=== PATIENT | female | born 1960 | race Caucasian/White ===

== ENCOUNTER 2021-12-18 11:32 | Outpatient (CLI) | payer MEDICARE ==
[~2021-12-18 11:32] MED LIST: CIPR750T14 PO; IBUP-1984 PO; LOSA25TA96 PO; MONT10TA21 PO; REM15T PO; TRAM50TA2 PO
[2021-12-18 14:45] LABS: BASOPHILS # (AUTO) 0.2 X10'3 (0-0.2); EOSINOPHILS # (AUTO) 0.8 X10'3 (0-0.9); HEMOGLOBIN 8.9 g/dl (12.0-16.0); MEAN PLATELET VOLUME 8.7 FL (7.4-10.4); MONOCYTES # (AUTO) 0.8 X10'3 (0-0.9); NEUTROPHILS # (AUTO) 4.8 X10'3 (1.8-7.7); WHITE BLOOD COUNT 7.8 X10'3 (4.5-11.0)
[2021-12-18 14:47] LABS: BASOPHILS % (AUTO) 2.8 % (0-1); EOSINOPHILS % (AUTO) 10.6 % (0-6); HEMATOCRIT 28.2 % (35.0-45.0); LYMPHOCYTES # (AUTO) 1.3 X10'3 (1.1-4.8); MEAN CORPUSCULAR HEMOGLOBIN 27.1 PG (27.0-31.0); MEAN CORPUSCULAR HGB CONC 31.6 g/dL (33.0-36.5); MEAN CORPUSCULAR VOLUME 85.6 FL (78-98); MONOCYTES % (AUTO) 9.8 % (2-12); NEUTROPHILS % (AUTO) 60.8 % (42-75); PLATELET COUNT 364 X10'3 (140-440); RED CELL DISTRIBUTION WIDTH 16.4 % (11.5-14.5)
[2021-12-18 14:56] LABS: ALANINE AMINOTRANSFERASE 52 U/L (12-78); ALBUMIN 2.7 G/DL (3.4-5.0); ALBUMIN/GLOBULIN RATIO 0.6 (1.1-1.5); ALKALINE PHOSPHATASE 115 IU/L (46-116); ANION GAP 13 (8-16); ASPARTATE AMINO TRANSFERASE 47 U/L (10-37); BILIRUBIN,TOTAL 0.2 MG/DL (0.1-1.0); BLOOD UREA NITROGEN 6 MG/DL (7-18); BUN/CREATININE RATIO 6.1 (6.6-38.0); CALCIUM 8.5 MG/DL (8.5-10.1); CHLORIDE 108 MMOL/L (99-107); CREATININE 0.99 MG/DL (0.40-0.90); GLUCOSE 118 MG/DL (70-104); POTASSIUM 3.5 MMOL/L (3.5-5.1); SODIUM 143 MMOL/L (135-145); TOTAL CARBON DIOXIDE 22.1 MMOL/L (24-32); TOTAL PROTEIN 7.2 G/DL (6.4-8.2); eGFR 57 ML/MIN
== END 2021-12-18 23:59 | disposition home or self-care (01) ==
LOC: LAB SPEC 11:32
DX: E84.9 Cystic fibrosis, unspecified (principal)
CPT/HCPCS: 36415; 80053; 85025

== ENCOUNTER 2022-11-13 10:16 | Emergency (ER) | payer MEDICARE ==
[~2022-11-13] VITALS: Ht 162.6 cm; Wt 52.3 kg
[~2022-11-13 10:16] MED LIST changes: +MONT-48 PO; -MONT10TA21 PO
[2022-11-13 10:59] LABS: BASOPHILS # (AUTO) 0.1 X10'3 (0-0.2); BASOPHILS % (AUTO) 1.2 % (0-1); EOSINOPHILS # (AUTO) 0.2 X10'3 (0-0.9); EOSINOPHILS % (AUTO) 1.5 % (0-6); HEMATOCRIT 33.8 % (35.0-45.0); HEMOGLOBIN 10.7 g/dl (12.0-16.0); LYMPHOCYTES # (AUTO) 1.4 X10'3 (1.1-4.8); LYMPHOCYTES % (AUTO) 12.4 % (21-51); MEAN CORPUSCULAR HEMOGLOBIN 25.5 PG (27.0-31.0); MEAN CORPUSCULAR HGB CONC 31.6 g/dL (33.0-36.5); MEAN CORPUSCULAR VOLUME 80.6 FL (78-98); MEAN PLATELET VOLUME 8.3 FL (7.4-10.4); MONOCYTES # (AUTO) 0.9 X10'3 (0-0.9); MONOCYTES % (AUTO) 8.1 % (2-12); NEUTROPHILS # (AUTO) 8.7 X10'3 (1.8-7.7); NEUTROPHILS % (AUTO) 76.8 % (42-75); PLATELET COUNT 393 X10'3 (140-440); RED BLOOD COUNT 4.19 X10'6 (4.20-5.60); RED CELL DISTRIBUTION WIDTH 15.6 % (11.5-14.5); WHITE BLOOD COUNT 11.4 X10'3 (4.5-11.0)
[2022-11-13] MEDS ORDERED: normal saline 1000ML IV soln IVB ONE (11:10)
[2022-11-13 11:14] LABS: ALANINE AMINOTRANSFERASE 18 U/L (12-78); ALBUMIN 3.1 G/DL (3.4-5.0); ALBUMIN/GLOBULIN RATIO 0.6 (1.1-1.5); ALKALINE PHOSPHATASE 86 IU/L (46-116); ANION GAP 9 (8-16); ASPARTATE AMINO TRANSFERASE 17 U/L (10-37); BILIRUBIN,TOTAL 0.1 MG/DL (0.1-1.0); BLOOD UREA NITROGEN 9 MG/DL (7-18); CALCIUM 9.5 MG/DL (8.5-10.1); CHLORIDE 102 MMOL/L (99-107); CREATININE 0.82 MG/DL (0.40-0.90); GLUCOSE 97 MG/DL (70-104); POTASSIUM 3.5 MMOL/L (3.5-5.1); SODIUM 140 MMOL/L (135-145); TOTAL CARBON DIOXIDE 29.4 MMOL/L (24-32); TOTAL PROTEIN 8.4 G/DL (6.4-8.2); eGFR 70 ML/MIN
[2022-11-13] MEDS ORDERED: iohexol 350MG/ML 100ml bottle IV ONE (11:14)
[2022-11-13] MEDS ORDERED: methylPREDNISolone sod succ 125mg/2ml vial IV ONE (11:20)
[2022-11-13] MEDS ORDERED: ipratropium/albuterol 3ml nebule NEB ONE (11:20)
[2022-11-13] MEDS ORDERED: LEVO750T68 PO (14:04)
[2022-11-13 14:26] VITALS: BP 147/69
== END 2022-11-13 14:30 | disposition home or self-care (01) ==
LOC: ER 10:17
DX: R04.2 Hemoptysis (principal); E84.9 Cystic fibrosis, unspecified
CPT/HCPCS: 36415; 71046; 71275; 80053; 83880; 85025; 94640; 96361; 96374; 99285; J2930; J3490; J7030; Q9967; 94760; 96360

== ENCOUNTER 2024-08-17 09:19 | Emergency (ER) | payer MEDICARE ==
[~2024-08-17] VITALS: Ht 160 cm; Wt 55.1 kg
[~2024-08-17 09:19] MED LIST changes: +LOSA-415 PO; -LOSA25TA96 PO
[2024-08-17 09:26] VITALS: BP 143/60; PULSE 95; O2SAT 97
[2024-08-17 10:36] VITALS: RESP 16
[2024-08-17] MEDS: cyclobenzaprine 10mg tablet PO ONE (10:36)
[2024-08-17] MEDS: ketorolac trometh 15mg/ml vial 15 MG/ML ML IM ONE (10:36)
[2024-08-17] MEDS ORDERED: CYCL-394 PO (11:37)
[2024-08-17 11:49] VITALS: TEMP 97.8
== END 2024-08-17 11:51 | disposition home or self-care (01) ==
LOC: ER 09:20
DX: S39.012A Strain of muscle, fascia and tendon of lower back, initial encounter (principal); E84.9 Cystic fibrosis, unspecified; I10 Essential (primary) hypertension; F32.A Depression, unspecified; F17.210 Nicotine dependence, cigarettes, uncomplicated; Z88.1 Allergy status to other antibiotic agents; Z98.890 Other specified postprocedural states; W19.XXXA Unspecified fall, initial encounter; Y93.89 Activity, other specified; Y92.89 Other specified places as the place of occurrence of the external cause; Y99.8 Other external cause status; Y90.9 Presence of alcohol in blood, level not specified
CPT/HCPCS: 96372; 99283; J1885